=== PATIENT | female | born 1945 | race American Indian/Alaskan Native ===

== ENCOUNTER 2017-04-09 16:32 | Inpatient (IN) | payer MEDICARE ==
[2017-04-09 17:01] LABS: Hematocrit 43.3 % (30.3-42.9); Mean Corpuscular HGB Conc 32 % (30-34); Mean Corpuscular Hemoglobin 31 pg (28-32); Mean Corpuscular Volume 95 fl (79-97); Platelet Count 188 K/mm3 (140-440); Red Blood Count 4.58 M/mm3 (3.65-5.03); Red Cell Distribution Width 13.6 % (13.2-15.2); White Blood Count 10.8 K/mm3 (4.5-11.0)
[2017-04-09 17:20] LABS: Anion Gap 19 mmol/L; BUN/Creatinine Ratio 30; Blood Urea Nitrogen 24 mg/dL (7-17); Calcium 9.1 mg/dL (8.4-10.2); Carbon Dioxide 26 mmol/L (22-30); Chloride 99.7 mmol/L (98-107); Glucose 102 mg/dL (65-100); Potassium 4.3 mmol/L (3.6-5.0); Sodium 140 mmol/L (137-145)
[2017-04-09 17:53] LABS: Blastocytes % (Manual) 0 %
[2017-04-09 17:54] LABS: Diff Status Complete; Platelet Estimate Consistent w Auto; Tear Drop Cells Few
--- NOTE | 2017-04-09 23:12 | Emergency Department Report ---
ED Chest Pain HPI - General Chief Complaint: Chest Pain Stated Complaint: CHEST PAIN AND SHORTNESS BREATH Time Seen by Provider: 04/09/17 22:01 Source: patient Mode of arrival: Ambulatory Limitations: No Limitations - History of Present Illness Initial Comments: 71-year-old female here with complaint of chest pain. Patient states that she felt slightly lightheaded earlier today and some chest pain. Denies shortness of breath nausea vomiting. Patient recently had a stress test approximately 3 months ago at [facility] that she says is completely normal. She states it was a nuclear stress test. -: days(s) (1) Onset: during rest Pain Location: substernal Severity scale (0 -10): 5 Quality: tightness Improves With: nothing Worsens With: nothing Other Symptoms: cough, fever - Related Data Home Medications Medication Instructions Recorded Confirmed Last Taken Hydrochlorothiazide [HCTZ] 20 mg PO QDAY 12/25/15 12/25/15 Unknown Potassium Chloride [K-Dur] 20 meq PO QDAY 12/25/15 12/25/15 Unknown Allergies Allergy/AdvReac Type Severity Reaction Status Date / Time erythromycin base Allergy Shortness Verified 12/25/15 09:18 of Breath influenza virus vaccine qs Allergy Shortness Verified 12/25/15 09:18 2013- of Breath [From Fluarix Quad 4393-2151 (PF)] morphine Allergy Shortness Verified 12/25/15 09:18 of Breath Penicillins Allergy Itching Verified 12/25/15 09:18 tramadol Allergy Itching Verified 12/25/15 09:18 Heart Score - HEART Score History: Moderately suspicious EKG: Normal Age: > 65 Risk factors: 1-2 risk factors Troponin: < normal limit HEART Score: 4 ED Review of Systems ROS: Stated complaint: CHEST PAIN AND SHORTNESS BREATH Other details as noted in HPI Comment: All other systems reviewed and negative Constitutional: denies: chills, fever Eyes: denies: eye pain, eye discharge, vision change ENT: denies: ear pain, throat pain Respiratory: denies: cough, shortness of breath, wheezing Cardiovascular: denies: chest pain, palpitations Endocrine: no symptoms reported Gastrointestinal: denies: abdominal pain, nausea, diarrhea Genitourinary: denies: urgency, dysuria, discharge Musculoskeletal: denies: back pain, joint swelling, arthralgia Skin: denies: rash, lesions Neurological: denies: headache, weakness, paresthesias Psychiatric: denies: anxiety, depression Hematological/Lymphatic: denies: easy bleeding, easy bruising ED Past Medical Hx - Past Medical History Previous Medical History?: Yes Hx Hypertension: Yes - Surgical History Past Surgical History?: Yes Additional Surgical History: hysto - Family History Family history: no significant - Social History Smoking Status: Never Smoker Substance Use Type: None - Medications Home Medications: Home Medications Medication Instructions Recorded Confirmed Last Taken Type Hydrochlorothiazide [HCTZ] 20 mg PO QDAY 12/24/12/25/15 Unknown History Potassium Chloride [K-Dur] 20 meq PO QDAY 12/25/15 12/25/15 Unknown History ED Physical Exam - General Limitations: No Limitations General appearance: alert, in no apparent distress - Head Head exam: Present: atraumatic, normocephalic - Eye Eye exam: Present: normal appearance. Absent: scleral icterus, conjunctival injection - ENT ENT exam: Present: mucous membranes moist - Neck Neck exam: Absent: lymphadenopathy, thyromegaly - Respiratory Respiratory exam: Present: normal lung sounds bilaterally. Absent: respiratory distress, wheezes - Cardiovascular Cardiovascular Exam: Present: regular rate, normal rhythm, normal heart sounds. Absent: systolic murmur, diastolic murmur, rubs, gallop - GI/Abdominal GI/Abdominal exam: Present: soft, normal bowel sounds - Extremities Exam Extremities exam: Present: normal inspection - Back Exam Back exam: Present: normal inspection - Neurological Exam Neurological exam: Present: alert, oriented X3 - Psychiatric Psychiatric exam: Present: normal affect, normal mood - Skin Skin exam: Present: warm, dry, intact, normal color. Absent: rash ED Course Vital Signs 04/09/17 04/09/17 16:38 22:00 Temperature 98.4 F 98.3 F Pulse Rate 96 H 79 Respiratory 16 16 Rate Blood Pressure 130/81 Blood Pressure 130/85 [Left] O2 Sat by Pulse 97 100 Oximetry ED Medical Decision Making - Lab Data Result diagrams: 04/09/17 16:48 04/09/17 16:48 Laboratory Results - last 24 hr 04/09/17 04/09/17 04/09/17 16:48 16:48 19:28 WBC 10.8 RBC 4.58 Hgb 14.0 Hct 43.3 H MCV 95 MCH 31 MCHC 32 RDW 13.6 Plt Count 188 Add Manual Diff Complete Total Counted 100 Seg Neuts % (Manual) 76.0 H Band Neutrophils % 3.0 Lymphocytes % (Manual) 13.0 L Reactive Lymphs % (Man) 0 Monocytes % (Manual) 6.0 Eosinophils % (Manual) 1.0 Basophils % (Manual) 1.0 Metamyelocytes % 0 Myelocytes % 0 Promyelocytes % 0 Blast Cells % 0 Nucleated RBC % Not Reportable Seg Neutrophils # Man 8.2 H Band Neutrophils # 0.3 Lymphocytes # (Manual) 1.4 Abs React Lymphs (Man) 0.0 Monocytes # (Manual) 0.6 Eosinophils # (Manual) 0.1 Basophils # (Manual) 0.1 Metamyelocytes # 0.0 Myelocytes # 0.0 Promyelocytes # 0.0 Blast Cells # 0.0 WBC Morphology Not Reportable Hypersegmented Neuts Not Reportable Hyposegmented Neuts Not Reportable Hypogranular Neuts Not Reportable Smudge Cells Not Reportable Toxic Granulation Not Reportable Toxic Vacuolation Not Reportable Dohle Bodies Not Reportable Pelger-Huet Anomaly Not Reportable Yamilet Rods Not Reportable Platelet Estimate Consistent w auto Clumped Platelets Not Reportable Plt Clumps, EDTA Not Reportable Large Platelets Not Reportable Giant Platelets Not Reportable Platelet Satelliting Not Reportable Plt Morphology Comment Not Reportable RBC Morphology Not Reportable Dimorphic RBCs Not Reportable Polychromasia Not Reportable Hypochromasia Not Reportable Poikilocytosis Not Reportable Anisocytosis Not Reportable Microcytosis Not Reportable Macrocytosis Not Reportable Spherocytes Not Reportable Pappenheimer Bodies Not Reportable Sickle Cells Not Reportable Target Cells Not Reportable Tear Drop Cells Few Ovalocytes Not Reportable Helmet Cells Not Reportable Mart-[place] Bodies Not Reportable Eleva Rings Not Reportable Prasanth Cells Not Reportable Bite Cells Not Reportable Crenated Cell Not Reportable Elliptocytes Not Reportable Acanthocytes (Spur) Not Reportable Rouleaux Not Reportable Hemoglobin C Crystals Not Reportable Schistocytes Not Reportable Malaria parasites Not Reportable Sid Bodies Not Reportable Hem Pathologist Commnt No Sodium 140 Potassium 4.3 Chloride 99.7 Carbon Dioxide 26 Anion Gap 19 BUN 24 H Creatinine 0.8 Estimated GFR > 60 BUN/Creatinine Ratio 30 Glucose 102 H Calcium 9.1 Troponin T < 0.010 < 0.010 - EKG Data -: EKG Interpreted by Me - EKG Data 04/09/17 23:17 Sinus 91 normal axis normal intervals and no ST-T wave changes - Medical Decision Making 71-year-old female here with chest pain that is now resolved. Patient had a recent stress test as an outpatient. And feel that this is ACS. Plan a chest x -ray and labs EKG and the rule out with 2 sets of troponins. Patient had 2 episodes of lightheadedness in the emergency department with continued chest pain. Decided to admit the patient for observation overnight. I do not miss really feel she needs another stress test at this point. [place] Critical care attestation.: If time is entered above; I have spent that time in minutes in the direct care of this critically ill patient, excluding procedure time. ED Disposition Clinical Impression: Chest pain, Pre-syncope Disposition: 09 OP ADMIT IP TO THIS HOSP Is pt being admited?: Yes Condition: Stable Instructions: Chest Pain (ED) Referrals: PRIMARY CARE, [Primary Care Provider] - 3-5 Days
[2017-04-10] MEDS ORDERED: ZOFRAN IV PRN (06:53)
[2017-04-10] MEDS ORDERED: NITRO-BID 2% TP SCH (07:00)
--- NOTE | 2017-04-10 07:22 | XRay Report ---
AP CHEST: HISTORY: chest pain AP view of the chest demonstrates a normal mediastinal and cardiac contour with clear lungs and normal bony and soft tissue structures. IMPRESSION: Unremarkable AP chest.
[2017-04-10] MEDS ORDERED: K-DUR PO SCH (10:00)
[2017-04-10] MEDS ORDERED: HCTZ PO SCH (10:00)
--- NOTE | 2017-04-10 12:12 | History and Physical Report ---
CHIEF COMPLAINT: Chest pain. HISTORY OF PRESENT ILLNESS: The patient is a 71-year-old female presenting with precordial chest pain, which she described as squeezing in nature that started yesterday. There was history of shortness of breath and dizziness, but there was no history of nausea or vomiting. There was also no history of diaphoresis and the patient denied also history of fever and cough, and presented to the Emergency Room. PAST MEDICAL HISTORY: Pertinent for hypertension. PAST SURGICAL HISTORY: Pertinent for hysterectomy. FAMILY HISTORY: Pertinent for carotid stenosis in the father; otherwise, there is no pertinent family history in the mother. SOCIAL HISTORY: The patient lives with family. Does not smoke, does not drink alcohol and does not use illicit drugs. MEDICATIONS: The patient is on hydrochlorothiazide 20 mg by mouth daily, potassium chloride 20 mEq by mouth daily. ALLERGIES: The patient is allergic to ERYTHROMYCIN, INFLUENZA VACCINE, and MORPHINE. REVIEW OF SYSTEMS: CONSTITUTIONAL: There is no fever, no chills, and no diaphoresis. HEENT: There is no headache or sore throat. CARDIOVASCULAR: Chest pain present. No orthopnea. RESPIRATORY: Shortness of breath present. No cough. GASTROINTESTINAL: There is no nausea, no vomiting, no abdominal pain, diarrhea or constipation. NEUROLOGICAL: There is no numbness, there is dizziness, and no altered mental status. MUSCULOSKELETAL: There is no joint pain or swelling. DERMATOLOGICAL: There is no skin rash or itching. GENITOURINARY: There is no dysuria, hematuria, or flank pain. Rest of system review is normal. PHYSICAL EXAMINATION: GENERAL: At the time of exam, the patient was found to be alert, oriented x 3, and not in acute distress. VITAL SIGNS: Shows temperature of 98.4 degrees Fahrenheit, pulse of 96, respirations 16, blood pressure 130/81 and O2 sat of 97% on room air. HEENT: Pupils to be equal, round, and reactive to light and accommodation. Extraocular muscles are intact. NECK: Supple with no JVD or carotid bruit. CARDIOVASCULAR: Showed normal first and second heart sounds with no gallops or murmurs. RESPIRATORY: Showed good air entry on both sides of the lung with no abnormal breath sounds. GASTROINTESTINAL SYSTEM: Show abdomen to be full, soft, and nontender with no organomegaly or rigidity. NEUROLOGICAL: Shows no focal deficit. MUSCULOSKELETAL: Show no joint swelling or tenderness. DERMATOLOGICAL: Show no skin rash. GENITOURINARY: Showing no costovertebral angle tenderness. PERTINENT LABORATORY AND IMAGING STUDIES: The patient had chest x-ray done that shows no acute cardiopulmonary lesions. The patient's lab shows CBC with normal white count, normal hemoglobin and slightly elevated hematocrit of 43.3% with CBC differential showing elevated neutrophil count of 76%. The patient's chemistry was unremarkable and cardiac enzymes showed 2 normal troponin levels. DIAGNOSIS: Chest pain. PLAN: The patient will be admitted to medical floor on telemetry and we will have cardiac enzymes checked q. 6 hours x 2 more levels. The patient will be on n.p.o. for Lexiscan stress test this morning and will remain on oxygen by nasal cannula at 2 liters per minute. The patient will be on nitro paste half inch to anterior chest wall q. 6 hours or q.i.d. and will be on Tylenol 650 mg by mouth every 4 hours as needed for fever and headache and will be on aspirin 325 mg by mouth daily. The patient will also be on her home medications after reconciliation and will be on heparin 5000 units subq q. 12 hours for deep venous thrombosis prophylaxis. Further management of the patient's condition will be dependent on the result of the stress test, which will be read by the lace sewer estimation manager. JOB# [id number] OCN/JENNYFER
--- NOTE | 2017-04-10 12:36 | Progress Note ---
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 Faith Sheffield and Research And Development Chemist Dr. Clayton Robles, both in [facility] (lives in [place] now) who presented with heart racing leading to exhaustion, shortness of breath followed by substernal chest pains radiating to the jaw. Patient had a stress test [facility] in December which was negative per Dr. Hay so stress test was cancelled on this admission. Chest x-ray read as negative, troponin negative. Patient saw the [place] ma[place] (Dr. Clayton Robles) 2 years ago due to abnormal EKG stress test at that time. Patient also gives a history of vomiting without nausea yesterday. -Palpitation: Admit to telemetry for 24-hour telemetry monitoring, consult cardiology for possible outpatient monitoring, check TSH -CP: consult Cardiology, -HTN: continue hctz History Interval history: Patient was seen and examined. Follow-up on current diagnosis/cp. Overnight uneventful. Patient denies any chest pain, shortness breath, nausea/vomiting or severe headaches. Imaging, nursing note, chart, labs and old chart reviewed. Discussed with patient. Hospitalist Physical - Physical exam Narrative exam: GEN: WDWN, NAD, AWAKE, ALERT, ORIENTATED 3 HEENT: NCAT, EOMI, PERRL, OP Clear NECK: supple, no adenopathy, no thyromegaly, no JVD CVS/HEART: RRR, NORMAL S1S2, NO JVD, pulses present bilaterally CHEST/LUNGS: CTA B, Symmetrical chest expansion, good air entry bilaterally GI/Abdomen: soft, NTND, good bowel sounds, no guarding or rebound /Bladder: no suprapubic tenderness, no CVA or paraspinal tenderness EXT/Skin: no c/c/e, no significant edema or obvious rash MSK: FROM x 4 Neuro: CN 2-12 grossly intact, no new focal deficits Psych: calm - Constitutional Vitals: Temp Pulse Resp BP Pulse Ox 98.3 F 73 18 120/69 97 04/09/17 22:00 04/10/17 09:30 04/10/17 09:30 04/10/17 09:30 04/10/17 09:30 Results - Labs CBC & Chem 7: 04/09/17 16:48 04/09/17 16:48 Labs: Laboratory Last Values WBC 10.8 K/mm3 (4.5-11.0) 04/09/17 16:48 RBC 4.58 M/mm3 (3.65-5.03) 04/09/17 16:48 Hgb 14.0 gm/dl (10.1-14.3) 04/09/17 16:48 Hct 43.3 % (30.3-42.9) H 04/09/17 16:48 MCV 95 fl (79-97) 04/09/17 16:48 MCH 31 pg (28-32) 04/09/17 16:48 MCHC 32 % (30-34) 04/09/17 16:48 RDW 13.6 % (13.2-15.2) 04/09/17 16:48 Plt Count 188 K/mm3 (140-440) 04/09/17 16:48 Add Manual Diff Complete 04/09/17 16:48 Total Counted 100 04/09/17 16:48 Seg Neuts % (Manual) 76.0 % (40.0-70.0) H 04/09/17 16:48 Band Neutrophils % 3.0 % 04/09/17 16:48 Lymphocytes % (Manual) 13.0 % (13.4-35.0) L 04/09/17 16:48 Reactive Lymphs % (Man) 0 % 04/09/17 16:48 Monocytes % (Manual) 6.0 % (0.0-7.3) 04/09/17 16:48 Eosinophils % (Manual) 1.0 % (0.0-4.3) 04/09/17 16:48 Basophils % (Manual) 1.0 % (0.0-1.8) 04/09/17 16:48 Metamyelocytes % 0 % 04/09/17 16:48 Myelocytes % 0 % 04/09/17 16:48 Promyelocytes % 0 % 04/09/17 16:48 Blast Cells % 0 % 04/09/17 16:48 Nucleated RBC % Not Reportable 04/09/17 16:48 Seg Neutrophils # Man 8.2 K/mm3 (1.8-7.7) H 04/09/17 16:48 Band Neutrophils # 0.3 K/mm3 04/09/17 16:48 Lymphocytes # (Manual) 1.4 K/mm3 (1.2-5.4) 04/09/17 16:48 Abs React Lymphs (Man) 0.0 K/mm3 04/09/17 16:48 Monocytes # (Manual) 0.6 K/mm3 (0.0-0.8) 04/09/17 16:48 Eosinophils # (Manual) 0.1 K/mm3 (0.0-0.4) 04/09/17 16:48 Basophils # (Manual) 0.1 K/mm3 (0.0-0.1) 04/09/17 16:48 Metamyelocytes # 0.0 K/mm3 04/09/17 16:48 Myelocytes # 0.0 K/mm3 04/09/17 16:48 Promyelocytes # 0.0 K/mm3 04/09/17 16:48 Blast Cells # 0.0 K/mm3 04/09/17 16:48 WBC Morphology Not Reportable 04/09/17 16:48 Hypersegmented Neuts Not Reportable 04/09/17 16:48 Hyposegmented Neuts Not Reportable 04/09/17 16:48 Hypogranular Neuts Not Reportable 04/09/17 16:48 Smudge Cells Not Reportable 04/09/17 16:48 Toxic Granulation Not Reportable 04/09/17 16:48 Toxic Vacuolation Not Reportable 04/09/17 16:48 Dohle Bodies Not Reportable 04/09/17 16:48 Pelger-Huet Anomaly Not Reportable 04/09/17 16:48 Yamilet Rods Not Reportable 04/09/17 16:48 Platelet Estimate Consistent w auto 04/09/17 16:48 Clumped Platelets Not Reportable 04/09/17 16:48 Plt Clumps, EDTA Not Reportable 04/09/17 16:48 Large Platelets Not Reportable 04/09/17 16:48 Giant Platelets Not Reportable 04/09/17 16:48 Platelet Satelliting Not Reportable 04/09/17 16:48 Plt Morphology Comment Not Reportable 04/09/17 16:48 RBC Morphology Not Reportable 04/09/17 16:48 Dimorphic RBCs Not Reportable 04/09/17 16:48 Polychromasia Not Reportable 04/09/17 16:48 Hypochromasia Not Reportable 04/09/17 16:48 Poikilocytosis Not Reportable 04/09/17 16:48 Anisocytosis Not Reportable 04/09/17 16:48 Microcytosis Not Reportable 04/09/17 16:48 Macrocytosis Not Reportable 04/09/17 16:48 Spherocytes Not Reportable 04/09/17 16:48 Pappenheimer Bodies Not Reportable 04/09/17 16:48 Sickle Cells Not Reportable 04/09/17 16:48 Target Cells Not Reportable 04/09/17 16:48 Tear Drop Cells Few 04/09/17 16:48 Ovalocytes Not Reportable 04/09/17 16:48 Helmet Cells Not Reportable 04/09/17 16:48 Mart-[place] Bodies Not Reportable 04/09/17 16:48 Loving Rings Not Reportable 04/09/17 16:48 Prasanth Cells Not Reportable 04/09/17 16:48 Bite Cells Not Reportable 04/09/17 16:48 Crenated Cell Not Reportable 04/09/17 16:48 Elliptocytes Not Reportable 04/09/17 16:48 Acanthocytes (Spur) Not Reportable 04/09/17 16:48 Rouleaux Not Reportable 04/09/17 16:48 Hemoglobin C Crystals Not Reportable 04/09/17 16:48 Schistocytes Not Reportable 04/09/17 16:48 Malaria parasites Not Reportable 04/09/17 16:48 Sid Bodies Not Reportable 04/09/17 16:48 Hem Pathologist Commnt No 04/09/17 16:48 Sodium 140 mmol/L (137-145) 04/09/17 16:48 Potassium 4.3 mmol/L (3.6-5.0) 04/09/17 16:48 Chloride 99.7 mmol/L (98-107) 04/09/17 16:48 Carbon Dioxide 26 mmol/L (22-30) 04/09/17 16:48 Anion Gap 19 mmol/L 04/09/17 16:48 BUN 24 mg/dL (7-17) H 04/09/17 16:48 Creatinine 0.8 mg/dL (0.7-1.2) 04/09/17 16:48 Estimated GFR > 60 ml/min 04/09/17 16:48 BUN/Creatinine Ratio 30 % 04/09/17 16:48 Glucose 102 mg/dL (65-100) H 04/09/17 16:48 Calcium 9.1 mg/dL (8.4-10.2) 04/09/17 16:48 Troponin T < 0.010 ng/mL (0.00-0.029) 04/09/17 22:26
[2017-04-10] MEDS: HEPARIN SUB-Q SCH ×2 (14:21→22:07)
--- NOTE | 2017-04-10 14:22 | Consultation ---
History of Present Illness Consult date: 04/10/17 Consult reason: other (Palpitations) History of present illness: This is a 71yr old woman who is admitted with chest pain. Patient reports vomiting followed by shortness of breath, dizziness, palpitations and chest pain prior to her arrival to the ED. Her ECG shows a sinus rhythm, no acute ischemic changes. Patient gives a history of hypertension. Her latest cardiac workup was negative stress test at [facility] a few months ago. Cardiology consultation was requested for evaluation of palpitations. Medications and Allergies Allergies Allergy/AdvReac Type Severity Reaction Status Date / Time erythromycin base Allergy Shortness Verified 04/10/17 07:08 of Breath influenza virus vaccine qs Allergy Shortness Verified 04/10/17 07:08 2013- of Breath [From Fluarix Quad 7441-4830 (PF)] morphine Allergy Shortness Verified 04/10/17 07:08 of Breath Penicillins Allergy Itching Verified 04/10/17 07:08 tramadol Allergy Itching Verified 04/10/17 07:08 Home Medications Medication Instructions Recorded Confirmed Last Taken Type Hydrochlorothiazide [HCTZ] 25 mg PO QDAY 12/25/15 04/10/17 1 Day Ago History Potassium Chloride [K-Dur] 20 meq PO QDAY 12/25/15 04/10/17 1 Day Ago History Active Meds: Active Medications Acetaminophen (Tylenol) 650 mg PO Q4H PRN PRN Reason: Pain, Mild (1-3) Aspirin (Aspirin) 325 mg PO QDAY [facility] Heparin Sodium (Porcine) (Heparin) 5,000 unit SUB-Q Q12HR ISMAEL Hydrochlorothiazide (Hctz) 20 mg PO QDAY [facility] Ondansetron HCl (Zofran) 4 mg IV Q8H PRN PRN Reason: Nausea And Vomiting Potassium Chloride (K-Dur) 20 meq PO QDAY [facility] Physical Examination Vital Signs Temp Pulse Resp BP Pulse Ox 98.4 F 96 H 16 130/81 97 04/09/17 16:38 04/09/17 16:38 04/09/17 16:38 04/09/17 16:38 04/09/17 16:38 General appearance: no acute distress HEENT: Positive: PERRL Neck: Positive: trachea midline Cardiac: Positive: Reg Rate and Rhythm Lungs: Positive: Decreased Breath Sounds Neuro: Positive: Grossly Intact Results 04/09/17 16:48 04/09/17 16:48 Assessment and Plan Chest pain, atypical negative MPI 12/2016 at [facility] [place] Hypertension Recommend: Remote telemetry monitoring. Check a TSH and serum mag.
[2017-04-10 14:23] LABS: Creatine Kinase MB 1.6 ng/mL (0.0-4.0)
[2017-04-10 14:28] LABS: Creatine Kinase 58 units/L (30-135)
[2017-04-10] MEDS: ASPIRIN PO SCH (17:55)
[2017-04-10 19:30] LABS: Creatine Kinase MB 1.6 ng/mL (0.0-4.0)
[2017-04-10 19:31] LABS: Creatine Kinase 57 units/L (30-135)
[2017-04-10] MEDS ORDERED: NACL 0.9% 500 ML 500 ML IV SCH (21:00)
[2017-04-10] MEDS: K-DUR PO SCH (22:08)
[2017-04-10] MEDS ORDERED: NACL 0.9% 1000 ML 500 ML IV SCH (23:00)
[2017-04-11 05:51] LABS: Partial Thromboplastin Time 26.2 Sec. (24.2-36.6)
[2017-04-11] MEDS ORDERED: CALAN ONE (10:42)
[2017-04-11] MEDS ORDERED: HEPARIN/NS 5000 UNIT/500ML(CATH LAB) 1,000 ML IR ONE (10:42)
[2017-04-11] MEDS ORDERED: HEPARIN 10,000 UNITS/10 ML ONE (10:42)
[2017-04-11] MEDS ORDERED: VERSED ONE (10:43)
[2017-04-11] MEDS ORDERED: NITROGLYCERIN SYRINGE 3 ML ONE (10:43)
[2017-04-11] MEDS ORDERED: NACL 0.9% 500 ML 500 ML ONE (10:46)
[2017-04-11] MEDS: SUBLIMAZE ONE ×2 (10:58→11:10)
[2017-04-11] MEDS: XYLOCAINE 2% INFILTRATI ONE ×2 (10:59→11:10)
[2017-04-11] MEDS: HEPARIN SUB-Q SCH ×2 (11:29→21:31)
--- NOTE | 2017-04-11 11:34 | Event Note ---
Date: 04/11/17 Cardiac cath completed, no complications. Findings: Normal coronaries, EF 60%. OK for cardiac discharge, post cath follow up 7 days.
[2017-04-11] MEDS ORDERED: Fluarix Quad 2017-2018(36 MOS+) IM ONE (12:00)
[2017-04-11] MEDS ORDERED: NACL 0.9% 1000 ML 1,000 ML IV SCH (12:00)
[2017-04-11] MEDS: ASPIRIN PO SCH (12:35)
--- NOTE | 2017-04-11 13:00 | Cardiac Catherization Report ---
CARDIAC CATHETERIZATION REASON FOR PROCEDURE: The patient is a 71-year-old woman, who presented with progressive, exertional fatigue and chest pain, prompting a recommendation for a cardiac catheterization. PROCEDURE: The patient was prepped and draped in a sterile fashion after informed consent. On initial attempt at cannulation of the right radial artery was unsuccessful. We turned our attention to the right femoral artery. Right femoral artery was entered using the Seldinger technique followed by placement of a 6-Mozambican sheath. Selective left and right coronary angiography was performed using Roberto catheters. A pigtail catheter was used for left ventricular angiography. The catheters were removed, sheath removed, and hemostasis achieved using an Angio-Seal device. The patient was returned to the postprocedure unit in stable condition. There were no complications. FINDINGS: HEMODYNAMICS: Left ventricular end-diastolic pressure was 18, following coronary angiography. Ascending aortic pressure was 133/78. There was no significant pressure gradient on pullback across the aortic valve. CORONARY ANGIOGRAPHY: The left main coronary artery was angiographically normal. The left anterior descending artery and its diagonal branches were angiographically normal. The circumflex artery and its obtuse marginal branches were angiographically normal. The right coronary artery was dominant and similarly angiographically normal. There was normal left ventricular systolic function, ejection fraction 60%. CONCLUSION: 1. Angiographically normal coronary arteries. 2. Normal left ventricular systolic function, ejection fraction 60%. RECOMMENDATION: Risk factor modification and medical therapy. JOB# [id number] DOMINGA/JENNYFER
--- NOTE | 2017-04-11 16:07 | Discharge Summary ---
Providers - Providers Date of Admission: 04/10/17 08:33 Date of discharge: 04/12/17 Attending physician: SRIDEVI HAINES 04/10/17 12:39 Consult to Physician [CONS] Routine Consulting Provider: CONCHIS COREA Reason For Exam: Palpitations,evaluate for arrhy Place consult to:: Bharti STEVENS Notified:: GARY Time called:: 12:46 04/11/17 11:34 Consult to Cardiac Rehabilitation [CONS] Routine Reason For Exam: Cardiac Rehab Evaluation Primary care physician: HISTORIC PRESERVATIONIST Hospitalization Condition: Stable Hospital course: Patient is 71-year-old woman who is a [employer] with a history of hypertension on hctz 25meg and kcl 20meq, followed by Dr. Faith Sheffield and Fiber Optic [employer] Worker Dr. Clayton Robles, both in [facility] (lives in [place] now) who presented with heart racing leading to exhaustion, shortness of breath followed by substernal chest pains radiating to the jaw. Patient had a stress test at [facility] in December which was negative per Dr. Corea so stress test was cancelled on this admission. Chest x-ray read as negative, troponin negative. Patient saw the meal miller (Dr. Clayton Robles) 2 years ago due to abnormal EKG stress test at that time. Patient also gives a history of vomiting without nausea yesterday. -Palpitation: Admit to telemetry for 24-hour telemetry monitoring, consult cardiology for possible outpatient monitoring, check TSH -CP, atypical, possibly costochondritits: consult Cardiology, -HTN: continue hctz normal cardiac cath. ok to discharge, d/w Dr. Corea, Fiber Optic Assembly Worker Disposition: DC-01 TO HOME OR SELFCARE Time spent for discharge: 35 minutes Core Measure Documentation - Palliative Care Palliative Care/ Comfort Measures: Not Applicable - Core Measures Any of the following diagnoses?: none - VTE Discharge Requirements Deep Vein Thrombosis/Pulmonary Embolism Present on Admission: No Has pt received <5 days of overlap therapy or INR<2.0: No Anticoagulant overlap therapy prescribed at discharge: No Contraindication No Overlap Therapy order at DC: Not Indicated Exam - Physical Exam Narrative exam: GEN: WDWN, NAD, AWAKE, ALERT, ORIENTATED 3 HEENT: NCAT, EOMI, PERRL, OP Clear NECK: supple, no adenopathy, no thyromegaly, no JVD CVS/HEART: RRR, NORMAL S1S2, NO JVD, pulses present bilaterally CHEST/LUNGS: CTA B, Symmetrical chest expansion, good air entry bilaterally GI/Abdomen: soft, NTND, good bowel sounds, no guarding or rebound /Bladder: no suprapubic tenderness, no CVA or paraspinal tenderness EXT/Skin: no c/c/e, no significant edema or obvious rash MSK: FROM x 4 Neuro: CN 2-12 grossly intact, no new focal deficits Psych: calm - Constitutional Vitals: Temp Pulse Resp BP Pulse Ox 97.4 F L 101 H 18 113/76 97 04/11/17 12:48 04/11/17 12:48 04/11/17 12:48 04/11/17 12:48 04/11/17 12:48 Plan Activity: other (no strenous activity until cleared by pcp) Diet: low salt Additional Instructions: Follow with her meal miller outpatient Follow up with: PRIMARY CAREMD [Primary Care Provider] - 3-5 Days Forms: [facility] PCI D/C Instructions
[2017-04-11] MEDS: TYLENOL PO PRN ×2 (18:15→21:30)
[2017-04-11] MEDS ORDERED: HCTZ PO SCH (20:00)
[2017-04-11] MEDS: K-DUR PO SCH (21:30)
[2017-04-12] MEDS: TYLENOL PO PRN (05:46)
[2017-04-12 05:56] VITALS: BP 146/84
[2017-04-12] MEDS: ASPIRIN PO SCH (10:34)
[2017-04-12] MEDS: HEPARIN SUB-Q SCH (10:35)
--- NOTE | 2017-04-12 15:46 | Progress Note ---
Assessment and Plan Chest pain, atypical negative MPI 12/2016 at [facility] normal coronaries, EF 60% on LHC this admission Fatigue normal TSH Hypertension Stable cardiac odell. Conservative cardiac management. Subjective Date of service: 04/12/17 Interval history: Patient has no complaints. Dressing applied to cardiac cath site. Objective Vital Signs Temp Pulse Resp BP BP Pulse Ox 04/12/17 08:54 99 04/12/17 05:19 98.1 F 67 18 146/84 99 04/11/17 23:25 98.5 F 65 18 109/72 99 04/11/17 22:00 65 99 04/11/17 20:10 98.2 F 69 18 115/58 98 04/11/17 16:00 97.2 F L 73 18 109/70 98 - Physical Examination General: No Apparent Distress HEENT: Positive: PERRL Neck: Positive: trachea midline Cardiac: Positive: Reg Rate and Rhythm Lungs: Positive: Decreased Breath Sounds Neuro: Positive: Grossly Intact Incision: Cardiac Cath Site
== END 2017-04-12 14:57 | disposition home or self-care (01) | DRG 206 ==
LOC: ED 16:32 → 4A 04-10 08:33
PROVIDERS: ADMIT Internal Medicine; ATTEND Internal Medicine
PROC: 4A023N7 Measurement of Cardiac Sampling and Pressure, Left Heart, Percutaneous Approach (ICD-10-PCS; principal; 2017-04-11)
PROC: B2141ZZ Fluoroscopy of Right Heart using Low Osmolar Contrast (ICD-10-PCS; principal; 2017-04-11)
PROC: 3E0234Z Introduction of Serum, Toxoid and Vaccine into Muscle, Percutaneous Approach (ICD-10-PCS; 2017-04-11)
PROC: B2111ZZ Fluoroscopy of Multiple Coronary Arteries using Low Osmolar Contrast (ICD-10-PCS; 2017-04-11)
DX: M94.0 Chondrocostal junction syndrome [Tietze] (principal); I10 Essential (primary) hypertension; R00.2 Palpitations; Z88.0 Allergy status to penicillin; Z88.8 Allergy status to other drugs, medicaments and biological substances; Z23 Encounter for immunization
CPT/HCPCS: 36415; 71010; 80048; 82550; 82553; 82962; 83735; 84443; 84484; 85007; 85025; 85610; 85730; 93005; 93010; 93458; C1760; C1894; J1644; J2250; J3010; J7040; Q9967

== ENCOUNTER 2019-08-08 19:39 | Emergency (ER) | payer MEDICARE ==
[2019-08-08 20:20] LABS: Basophils % (Auto) 0.6 % (0.0-1.8); Eosinophils # (Auto) 0.1 K/mm3 (0.0-0.4); Eosinophils % (Auto) 0.7 % (0.0-4.3); Hematocrit 37.2 % (30.3-42.9); Hemoglobin 12.3 gm/dl (10.1-14.3); Lymphocytes # (Auto) 1.5 K/mm3 (1.2-5.4); Lymphocytes % (Auto) 19.1 % (13.4-35.0); Mean Corpuscular HGB Conc 33 % (30-34); Mean Corpuscular Volume 97 fl (79-97); Monocytes # (Auto) 0.6 K/mm3 (0.0-0.8); Platelet Count 151 K/mm3 (140-440); Red Blood Count 3.82 M/mm3 (3.65-5.03); Red Cell Distribution Width 13.4 % (13.2-15.2)
--- NOTE | 2019-08-08 20:29 | Emergency Department Report ---
ED Dizziness HPI - General Chief Complaint: Dizziness Stated Complaint: NAUSEA/DIZZINESS Time Seen by Provider: 08/08/19 20:27 Source: patient, EMS Mode of arrival: Stretcher Limitations: No Limitations - History of Present Illness Initial Comments: Patient is a 74-year-old female that presents from urgent with complaints of dizziness and nausea. Patient states her symptoms started at 3 PM today. Patient denies chest pain/shortness of breath. Patient states her dizziness is better with rest and worse with exertion. Patient states she is compliant with her medications. Patient states she has a history of hypertension and diabetes. Patient states her diabetes is diet control. Patient denies a cardiac history. Patient denies [place]. Patient denies stroke. Patient denies weakness in her limbs. Patient denies slurred speech. MD Complaint: dizziness, lightheadedness -: Sudden Timing: sudden onset Description: lightheadedness History of Same: No History of Trauma: No Severity: severe Improves With: rest Worsens With: movement, position, exertion - Related Data Home Medications Medication Instructions Recorded Confirmed Last Taken hydroCHLOROthiazide [HCTZ] 25 mg PO QDAY 12/25/15 04/10/17 1 Day Ago ~04/09/17 Previous Rx's Medication Instructions Recorded Last Taken Type Potassium Chloride 20 meq PO DAILY 30 Days #30 liquid 08/08/19 Unknown Rx Allergies Allergy/AdvReac Type Severity Reaction Status Date / Time erythromycin base Allergy Shortness Verified 04/10/17 07:08 of Breath influenza virus vaccine qs Allergy Shortness Verified 04/10/17 07:08 2013- of Breath [From Fluarix Quad [id number] (PF)] morphine Allergy Shortness Verified 04/10/17 07:08 of Breath Penicillins Allergy Itching Verified 04/10/17 07:08 tramadol Allergy Itching Verified 04/10/17 07:08 ED Review of Systems ROS: Stated complaint: NAUSEA/DIZZINESS Other details as noted in HPI Constitutional: denies: chills, fever Eyes: denies: eye pain, eye discharge, vision change ENT: denies: ear pain, throat pain Respiratory: denies: cough, shortness of breath, wheezing Cardiovascular: denies: chest pain, palpitations Endocrine: no symptoms reported Gastrointestinal: nausea. denies: abdominal pain, diarrhea Genitourinary: denies: urgency, dysuria, discharge Musculoskeletal: denies: back pain, joint swelling, arthralgia Skin: denies: rash, lesions Neurological: denies: headache, weakness, paresthesias Psychiatric: denies: anxiety, depression Hematological/Lymphatic: denies: easy bleeding, easy bruising ED Past Medical Hx - Past Medical History Previous Medical History?: Yes Hx Hypertension: Yes Hx Diabetes: Yes (Type 2) - Surgical History Additional Surgical History: hysto - Social History Smoking Status: Never Smoker Substance Use Type: Alcohol - Medications Home Medications: Home Medications Medication Instructions Recorded Confirmed Last Taken Type hydroCHLOROthiazide [HCTZ] 25 mg PO QDAY 12/25/15 04/10/17 1 Day Ago History ~04/09/17 Potassium Chloride 20 meq PO DAILY 30 Days #30 liquid 08/08/19 Unknown Rx ED Physical Exam - General Limitations: No Limitations General appearance: alert, in no apparent distress - Head Head exam: Present: atraumatic, normocephalic - Eye Eye exam: Present: normal appearance - ENT ENT exam: Present: mucous membranes moist - Neck Neck exam: Present: normal inspection - Respiratory Respiratory exam: Present: normal lung sounds bilaterally. Absent: respiratory distress - Cardiovascular Cardiovascular Exam: Present: regular rate, normal rhythm. Absent: systolic murmur, diastolic murmur, rubs, gallop - GI/Abdominal GI/Abdominal exam: Present: soft, normal bowel sounds - Extremities Exam Extremities exam: Present: normal inspection - Back Exam Back exam: Present: normal inspection - Neurological Exam Neurological exam: Present: alert, oriented X3 - Psychiatric Psychiatric exam: Present: normal affect, normal mood - Skin Skin exam: Present: warm, dry, intact, normal color. Absent: rash ED Course Vital Signs 08/08/19 08/08/19 08/08/19 19:51 19:53 20:20 Temperature 98.6 F 98.6 F Pulse Rate 79 79 Respiratory 13 13 13 Rate Blood Pressure 148/95 Blood Pressure 148/95 [Right] O2 Sat by Pulse 97 97 97 Oximetry 08/08/19 08/08/19 08/08/19 21:17 22:14 23:33 Temperature Pulse Rate 76 71 65 Respiratory 15 14 18 Rate Blood Pressure Blood Pressure 146/82 126/75 144/75 [Right] O2 Sat by Pulse 98 98 98 Oximetry - Reevaluation(s) Reevaluation #1: Patient states she is feeling better. Patient states she's had a history of low potassium but patient is not taking her potassium with her hydrochlorothiazide as prescribed by her primary care. 08/08/19 22:05 Reevaluation #2: Patient states she is feeling better. Patient ambulatory around the ER. Patient denies dizziness. Patient denies weakness. Patient denies nausea. 08/08/19 22:48 Reevaluation #3: Patient states she is back to baseline. Patient states she is a symptomatically. I discussed all results with patient. I discussed importance of taking medications as directed to include her potassium and taking in adequate amounts of water. Patient stated discharge. Patient be discharged home. Patient given discharge instructions. Patient voiced understanding of discharge instructions. 08/08/19 23:16 ED Medical Decision Making - Lab Data Result diagrams: 08/08/19 20:09 08/08/19 20:09 - EKG Data -: EKG Interpreted by Me EKG shows normal: sinus rhythm, axis, intervals, QRS complexes, ST-T waves Rate: normal - Radiology Data Radiology results: report reviewed, image reviewed CT head/brain wo con INDICATION / CLINICAL INFORMATION: 74 years Female; neuro deficits <6hrs or sx present upon awakening. TECHNIQUE: Routine CT head without contrast. All CT scans at this location are performed using CT dose reduction for ALARA by means of automated exposure control. COMPARISON: None. FINDINGS: BRAIN / INTRACRANIAL CONTENTS: No acute hemorrhage, mass effect, midline shift, hydrocephalus, or acute, large territorial infarct. Mild, diffuse cerebral atrophy noted. Minimal, nonspecific white matter disease seen in the cerebral hemispheres. CRANIOCERVICAL JUNCTION: No significant abnormality. ORBITS: No significant abnormality of visualized orbits. SINUSES / MASTOIDS: No significant abnormality the visualized paranasal sinuses or mastoid air cells. ADDITIONAL FINDINGS: None. IMPRESSION: 1. No focal mass, hemorrhage, hydrocephalus, or acute, large territorial infarct. CHEST 1 VIEW, 08/08/2019 9:36 PM CLINICAL INFORMATION/INDICATION: Chest pain. Dizziness. COMPARISON: Chest radiograph, 04/09/2017 FINDINGS: SUPPORT DEVICES: None. HEART: The cardiac silhouette is normal in size. LUNGS/PLEURA: The lungs are clear of focal airspace disease or significant pleural effusion. ADDITIONAL FINDINGS: No additional acute findings. IMPRESSION: 1. No evidence of acute cardiopulmonary process. - Medical Decision Making Patient is a 74-year-old female that presents emergency room with complaints of dizziness, nausea. Patient responded well to treatment. Patient given fluids here and her symptoms resolved. Patient's lab work done in the ER and were significant for dehydration and hypokalemia. Patient given oral potassium in the ER. She has a history of low potassium and patient has been noncompliant with her oral potassium at home. Patient takes hydrochlorothiazide and is instructed by her doctor to take potassium supplements with her hydrochlorothiazide. Patient's EKG negative for acute findings. Patient's chest x-ray was negative for acute findings. Patient's head CT negative for acute findings. Patient discharged home. Patient is discharged. - Differential Diagnosis dizziness. deydration, electrolyte imbalance. Critical care attestation.: If time is entered above; I have spent that time in minutes in the direct care of this critically ill patient, excluding procedure time. ED Disposition Clinical Impression: Dizziness, Hypokalemia, Dehydration Disposition: DC-01 TO HOME OR SELFCARE Is pt being admited?: No Does the pt Need Aspirin: No Condition: Stable Instructions: Dehydration (ED), Hypokalemia (ED), Lightheadedness (ED), Dizziness (ED) Additional Instructions: Patient to follow up with primary care in 2-3 days. Patient to return to ER if condition worsens, changes or new symptoms arise. Patient to take potassium as directed. Patient to rest. Patient to increase water. Patient to continue all other medications. Prescriptions: Potassium Chloride 20 meq PO DAILY 30 Days #30 liquid Referrals: PRIMARY CARE, [Primary Care Provider] - 2-3 Days Time of Disposition: 23:19 - Assessment Assessment Interval: Baseline - Level of Consciousness 1a. Level of Consciousness: alert/keenly responsive - LOC Questions 1b. LOC Questions: answers both correctly - LOC Command 1c. LOC Commands: performs tasks correctly - Best Gaze 2. Best Gaze: normal - Visual 3. Visual: no visual loss - Facial Palsy 4. Facial Palsy: normal symmetrical movement - Motor Arm 5a. Motor Arm Left: no drift 5b. Motor Arm Right: no drift - Motor Leg 6a. Motor Leg Left: no drift 6b. Motor Leg Right: no drift - Limb Ataxia 7. Limb Ataxia: absent - Sensory 8. Sensory: normal - Best Language 9. Best Language: no aphasia - Dysarthria 10. Dysarthria: normal - Extinction and Inattention 11. Extinction/Inattention: no abnormality - Scoring Total Score: 0 Stroke Severity: No Stroke Symptoms
[2019-08-08 20:40] LABS: INR 1.09 (0.87-1.13); Partial Thromboplastin Time 27.2 Sec. (24.2-36.6)
[2019-08-08 20:41] LABS: BUN/Creatinine Ratio 15; Blood Urea Nitrogen 9 mg/dL (7-17); Calcium 7.8 mg/dL (8.4-10.2); Hemolysis Index 9
--- NOTE | 2019-08-08 21:28 | Cat Scan Report ---
CT head/brain wo con INDICATION / CLINICAL INFORMATION: 74 years Female; neuro deficits <6hrs or sx present upon awakening. TECHNIQUE: Routine CT head without contrast. All CT scans at this location are performed using CT dos e reduction for ALARA by means of automated exposure control. COMPARISON: None. FINDINGS: BRAIN / INTRACRANIAL CONTENTS: No acute hemorrhage, mass effect, midline shift, hydrocephalus, or acu te, large territorial infarct. Mild, diffuse cerebral atrophy noted. Minimal, nonspecific white matter disease seen in the cerebral hemispheres. CRANIOCERVICAL JUNCTION: No significant abnormality. ORBITS: No significant abnormality of visualized orbits. SINUSES / MASTOIDS: No significant abnormality the visualized paranasal sinuses or mastoid air cells. ADDITIONAL FINDINGS: None. IMPRESSION: 1. No focal mass, hemorrhage, hydrocephalus, or acute, large territorial infarct. Signer Name: Vaibhav Craig MD, III Signed: 08/08/2019 9:23 PM Workstation Name: [id number]
[2019-08-08] MEDS ORDERED: SODIUM CHLORIDE 0.9% 1000 ML 1,000 ML IV ONE (21:35)
--- NOTE | 2019-08-08 22:31 | XRay Report ---
CHEST 1 VIEW, 08/08/2019 9:36 PM CLINICAL INFORMATION/INDICATION: Chest pain. Dizziness. COMPARISON: Chest radiograph, 04/09/2017 FINDINGS: SUPPORT DEVICES: None. HEART: The cardiac silhouette is normal in size. LUNGS/PLEURA: The lungs are clear of focal airspace disease or significant pleural effusion. ADDITIONAL FINDINGS: No additional acute findings. IMPRESSION: 1. No evidence of acute cardiopulmonary process. Signer Name: Mel Dubon MD Signed: 08/08/2019 10:27 PM Workstation Name: [id number]
[2019-08-08] MEDS ORDERED: POTASSIUM CHLORIDE 20 MEQ PACKET FEEDTUBE ONE (22:42)
[2019-08-08 23:34] VITALS: BP 144/75
== END 2019-08-08 23:34 | disposition home or self-care (01) ==
LOC: ED 19:39
DX: R42 Dizziness and giddiness (principal); E87.6 Hypokalemia; E86.0 Dehydration; I10 Essential (primary) hypertension; E11.9 Type 2 diabetes mellitus without complications; Z79.899 Other long term (current) drug therapy; Z88.8 Allergy status to other drugs, medicaments and biological substances
CPT/HCPCS: 36415; 70450; 71045; 80048; 82962; 84484; 85025; 85610; 85670; 85730; 93005; 93010; 96360; 99285; J7030

== ENCOUNTER 2020-12-14 06:31 | Emergency (ER) | payer MEDICARE ==
[2020-12-14 07:21] LABS: Basophils # (Auto) 0.1 K/mm3 (0.0-0.1); Basophils % (Auto) 0.7 % (0.0-1.8); Eosinophils # (Auto) 0.1 K/mm3 (0.0-0.4); Eosinophils % (Auto) 1.3 % (0.0-4.3); Hematocrit 37.4 % (30.3-42.9); Lymphocytes # (Auto) 2.3 K/mm3 (1.2-5.4); Lymphocytes % (Auto) 24.2 % (13.4-35.0); Mean Corpuscular HGB Conc 35 % (30-34); Mean Corpuscular Volume 94 fl (79-97); Monocytes # (Auto) 0.8 K/mm3 (0.0-0.8); Monocytes % (Auto) 8.4 % (0.0-7.3); Platelet Count 154 K/mm3 (140-440); Red Blood Count 3.96 M/mm3 (3.65-5.03); Red Cell Distribution Width 13.3 % (13.2-15.2)
[2020-12-14 07:46] LABS: Alanine Aminotransferase 12 units/L (7-56); Albumin 3.6 g/dL (3.9-5); Blood Urea Nitrogen 15 mg/dL (7-17); Hemolysis Index 11
--- NOTE | 2020-12-14 07:51 | XRay Report ---
CHEST 2 VIEWS INDICATION: palpitations. Nausea and headache for 6 hours. COMPARISON: 08/08/2019 FINDINGS: Support devices: None. Heart: Within normal limits. The aorta is mildly ectatic but well defined. Lungs/pleura: No acute air space or interstitial disease. No pneumothorax. Additional findings: None. IMPRESSION: No acute findings. Signer Name: Damian Mora Jr, MD Signed: 12/14/2020 7:47 AM Workstation Name: [id number]
[2020-12-14 08:06] LABS: BUN/Creatinine Ratio 25
--- NOTE | 2020-12-14 14:39 | Emergency Department Report ---
ED General Adult HPI - General Chief complaint: Arrhythmia/Palpitations Stated complaint: Palpitations and headache Time Seen by Provider: 12/14/20 14:08 Source: patient, RN notes reviewed, old records reviewed Mode of arrival: Ambulatory Limitations: No Limitations - History of Present Illness Initial comments: The patient was evaluated in the emergency department for symptoms described in the history of present illness. He/she was evaluated in the context of the global COVID-19 pandemic, which necessitated consideration that the patient might be at risk for infection with the virus that causes COVID-19. Institutional protocols and algorithms that pertain to the evaluation of patients at risk for COVID-19 are in a state of rapid change based on information released by regulatory bodies including the CDC and federal and state organizations. These policies and algorithms were followed during the patient's care in the emergency department. Please note that these policies, procedures and recommendations changed on a rapid basis. Cardiology: [facility] cardiology The patient is a pleasant 75-year-old female. She had a cardiac catheterization in 2017 at this hospital, which was negative for significant disease. She currently has a history of A. fib, and is maintained on Xarelto. She presents to the ER today with a complaint of resolved palpitations, and resolved headache. The symptoms started last night. The headache was frontal, midline. The headache is not sudden or thunderclap in nature. The headache is not maximal in intensity. The headache is not associate with trauma, and not the worst headache of her life. She reports the worst headache a few years ago. She has no temporal pain, no claudication, no ocular pain, although she does report chronic blurry vision, and reports that she was supposed to follow-up with an outpatient actor understudy or automotive electrical helper, and has failed to do so secondary to Covid. She uses reading glasses [id number], but does not have prescription glasses. She denies neck pain, chest pain, abdominal pain, shortness of breath, urinary symptoms, focal extremity weakness and numbness. She sleeps in bed by herself, and usually gets 6 to 7 hours of sleep. She does occasionally consume caffeine at 5:00 PM, in the form of tea beverages. -: Gradual Location: head Radiation: non-radiation Severity scale (0 -10): 4 Consistency: now resolved Improves with: none Worsens with: none - Related Data Home Medications Medication Instructions Recorded Confirmed Last Taken hydroCHLOROthiazide [HCTZ] 25 mg PO QDAY 12/25/15 04/10/17 1 Day Ago ~04/09/17 Previous Rx's Medication Instructions Recorded Last Taken Type Potassium Chloride 20 meq PO DAILY 30 Days #30 liquid 08/08/19 Unknown Rx Allergies Allergy/AdvReac Type Severity Reaction Status Date / Time erythromycin base Allergy Shortness Verified 04/10/17 07:08 of Breath influenza virus vaccine qs Allergy Shortness Verified 04/10/17 07:08 2013- of Breath [From Fluarix Quad [id number] (PF)] morphine Allergy Shortness Verified 04/10/17 07:08 of Breath Penicillins Allergy Itching Verified 04/10/17 07:08 tramadol Allergy Itching Verified 04/10/17 07:08 ED Review of Systems ROS: Stated complaint: CHEST DISCOMFORT Other details as noted in HPI Constitutional: denies: diaphoresis, malaise, weakness Eyes: denies: eye pain, eye discharge ENT: denies: epistaxis Respiratory: denies: cough Cardiovascular: palpitations. denies: chest pain Gastrointestinal: denies: abdominal pain, nausea, vomiting Genitourinary: denies: dysuria Neurological: headache. denies: weakness, numbness, paresthesias Hematological/Lymphatic: denies: easy bleeding ED Past Medical Hx - Past Medical History Hx Hypertension: Yes Hx Diabetes: Yes (pre-diabetic) Additional medical history: A-fib - Surgical History Additional Surgical History: hysto - Social History Smoking Status: Never Smoker - Medications Home Medications: Home Medications Medication Instructions Recorded Confirmed Last Taken Type hydroCHLOROthiazide [HCTZ] 25 mg PO QDAY 12/25/15 04/10/17 1 Day Ago History ~04/09/17 Potassium Chloride 20 meq PO DAILY 30 Days #30 liquid 08/08/19 Unknown Rx ED Physical Exam - General Limitations: No Limitations General appearance: alert, in no apparent distress, obese - Head Head exam: Present: atraumatic, normocephalic - Eye Eye exam: Present: normal appearance, PERRL, EOMI, other (Visual acuity intact to finger counting, color perception, reading at a close distance). Absent: nystagmus - ENT ENT exam: Present: normal exam, normal orophraynx, mucous membranes moist, normal external ear exam - Neck Neck exam: Present: normal inspection, full ROM. Absent: tenderness, meningismus - Respiratory Respiratory exam: Present: normal lung sounds bilaterally. Absent: respiratory distress, wheezes, rales, rhonchi, stridor, decreased breath sounds - Cardiovascular Cardiovascular Exam: Present: regular rate, irregular rhythm, normal heart sounds. Absent: bradycardia, tachycardia, systolic murmur, diastolic murmur, rubs, gallop - GI/Abdominal GI/Abdominal exam: Present: soft. Absent: distended, tenderness, guarding, rebound, rigid, pulsatile mass - Extremities Exam Extremities exam: Present: normal inspection, full ROM, other (2+ pulses noted in the bilateral upper and lower extremities. There is no palpable cord. negative Homans sign. Muscular compartments are soft. The pelvis is stable.). Absent: pedal edema, calf tenderness - Back Exam Back exam: Present: normal inspection, full ROM. Absent: tenderness, CVA tende rness (R), CVA tenderness (L), paraspinal tenderness, vertebral tenderness - Neurological Exam Neurological exam: Present: alert, oriented X3, normal gait, other (No facial droop. Tongue midline. Extraocular movements intact bilaterally. Facial sensation intact to light touch in V1, V2, V3 distribution bilaterally. 5 and a 5 strength in 4 extremities. Sensation intact to light touch in 4 extremities.). Absent: motor sensory deficit - Psychiatric Psychiatric exam: Present: normal affect, normal mood - Skin Skin exam: Present: warm, dry, intact, normal color. Absent: rash ED Course Vital Signs 12/14/20 12/14/20 06:36 14:36 Temperature 98.2 F Pulse Rate 95 H 70 Respiratory 16 18 Rate Blood Pressure 153/96 Blood Pressure 140/87 [Right] O2 Sat by Pulse 98 99 Oximetry ED Medical Decision Making - Lab Data Result diagrams: 12/14/20 07:09 12/14/20 07:09 Vital Signs 12/14/20 12/14/20 06:36 14:36 Temperature 98.2 F Pulse Rate 95 H 70 Respiratory 16 18 Rate Blood Pressure 153/96 Blood Pressure 140/87 [Right] O2 Sat by Pulse 98 99 Oximetry Labs 12/14/20 12/14/20 12/14/20 07:09 07:09 12:54 WBC 9.6 RBC 3.96 Hgb 13.0 Hct 37.4 MCV 94 MCH 33 H MCHC 35 H RDW 13.3 Plt Count 154 Lymph % (Auto) 24.2 Hardeman % (Auto) 8.4 H Eos % (Auto) 1.3 Baso % (Auto) 0.7 Lymph # (Auto) 2.3 Hardeman # (Auto) 0.8 Eos # (Auto) 0.1 Baso # (Auto) 0.1 Seg Neutrophils % 65.4 Seg Neutrophils # 6.2 Sodium 139 Potassium 3.6 Chloride 104.3 Carbon Dioxide 25 Anion Gap 13 BUN 15 Creatinine 0.6 Estimated GFR > 60 BUN/Creatinine Ratio 25 Glucose 118 H Calcium 9.0 Magnesium Total Bilirubin < 0.20 AST 14 ALT 12 Alkaline Phosphatase 89 Troponin T < 0.010 < 0.010 Total Protein 6.9 Albumin 3.6 L Albumin/Globulin Ratio 1.1 TSH 12/14/20 12/14/20 12:54 12:54 WBC RBC Hgb Hct MCV MCH MCHC RDW Plt Count Lymph % (Auto) Hardeman % (Auto) Eos % (Auto) Baso % (Auto) Lymph # (Auto) Hardeman # (Auto) Eos # (Auto) Baso # (Auto) Seg Neutrophils % Seg Neutrophils # Sodium Potassium Chloride Carbon Dioxide Anion Gap BUN Creatinine Estimated GFR BUN/Creatinine Ratio Glucose Calcium Magnesium 2.20 Total Bilirubin AST ALT Alkaline Phosphatase Troponin T Total Protein Albumin Albumin/Globulin Ratio TSH 2.320 - EKG Data -: EKG Interpreted by Mi - EKG Data 12/14/20 16:47 EKG interpreted at 06: 42 Sinus rhythm, PAC, normal axis, QTC 448 ms, NC interval 212 ms. Abnormal EKG, poor R wave progression, not a STEMI, appears unchanged from prior EKG from August 08, 2019 - Radiology Data Radiology results: pending, report reviewed, image reviewed [address] [address] Cat Scan Report Signed Patient: BALWINDER FRANK MR#: [id number] : 1945 Acct:[id number] Age/Sex: 75 / F ADM Date: 12/14/20 Loc: ED Attending Dr: Ordering Physician: RAKESH NOVOA MD Date of Service: 12/14/20 Procedure(s): CT head/brain wo con Accession Number(s): [id number] cc: RAKESH NOVOA MD CT head/brain wo con INDICATION: headache, on xarelto. TECHNIQUE: All CT scans at this location are performed using CT dose reduction for ALARA by means of automated exposure control. COMPARISON: Previous head CT on 08/08/2019 FINDINGS: There is no evidence of hemorrhage, hydrocephalus, brain edema, or mass effect/mass lesion. There is unchanged mild brain atrophy and mild chronic small vessel ischemic change in the cerebral white matter. The included paranasal sinuses and mastoid air cells are clear. The orbits appear unremarkable. IMPRESSION: 1. No acute findings or adverse change from prior exams. Signer Name: Michael Joseph MD Signed: 12/14/2020 4:00 PM Workstation Name: [id number] Transcribed By: NEHEMIAS Dictated By: Michael Joseph MD Electronically Authenticated By: Michael Joseph MD Signed Date/Time: 12/14/20 1600 DD/ 1559 [facility] [address] [place] [address] XRay Report Signed Patient: BALWINDER FRANK MR#: [id number] : 1945 Acct:[id number] Age/Sex: 75 / F ADM Date: 12/14/20 Loc: ED Attending Dr: Ordering Physician: MIKAYLA SANDERS MD Date of Service: 12/14/20 Procedure(s): XR chest routine 2V Accession Number(s): [id number] cc: ED MD MARILYN Fluoro Time In Minutes: CHEST 2 VIEWS INDICATION: palpitations. Nausea and headache for 6 hours. C OMPARISON: 08/08/2019 FINDINGS: Support devices: None. Heart: Within normal limits. The aorta is mildly ectatic but well defined. Lungs/pleura: No acute air space or interstitial disease. No pneumothorax. Additional findings: None. IMPRESSION: No acute findings. Signer Name: aDmian Mora Jr, MD Signed: 12/14/2020 7:47 AM Workstation Name: [id number] Transcribed By: TTR Dictated By: DAMIAN MORA JR, MD Electronically Authenticated By: DAMIAN MORA JR, MD Signed Date/Time: 12/14/20 0747 DD/ 0746 - Medical Decision Making Differential diagnosis, including but not limited to: Palpitations, electrolyte derangement, anticoagulated, A. fib, migraine headache, tension headache, cluster headache, anxiety, sleep apnea, caffeine side effect assessment and plan: 75-year-old female, with a GCS of 15, NIH score of 0, who is clinically sober, with no pulmonary embolism or DVT risk factors, low risk by Wells criteria for pulmonary embolism, systemically anticoagulated, angiographically normal coronary arteries via catheterization at this hospital in 2017, troponin negative x2, with resolved headache, and resolved palpitations, presenting with a primary complaint of palpitations, painless, now resolved, and headache which is now resolved. No recent trauma, chiropractic manipulation, MVC, headache is not described as sudden, thunderclap, or worst headache of life, no temporal pain, no jaw claudication, no pain with chewing and/or swallowing, and no acute changes in visual acuity. Because of advanced age, presence of systemic anticoagulation, noncontrast CT scan of the brain was obtained, which was negative for acute findings. Patient's EKG is unchanged from prior, laboratory studies unremarkable. Advanced age and cardiovascular risk factor profile are reviewed and appreciated, but based off of the history, physical, objective diagnostic testing, do not see indication to admit this patient for accelerated cardiac or stratification at this time, especially as her complaint is painless palpitations, and resolved headache. After a thorough ER work-up and evaluation, she was not found to have an emergent medical condition present at this time, and she may follow-up with her outpatient primary care doctor and/or crusher plant operator. The patient was counseled to follow-up with her outpatient actor understudy or automotive electrical helper for evaluation for prescription glasses. She has articulated understanding. Critical care attestation.: If time is entered above; I have spent that time in minutes in the direct care of this critically ill patient, excluding procedure time. ED Disposition Clinical Impression: History of headache, Atrial fibrillation, Palpitations Disposition: DC-01 TO HOME OR SELFCARE Is pt being admited?: No Does the pt Need Aspirin: No Condition: Good Additional Instructions: Please continue current outpatient medications. Please follow-up with your outpatient primary care doctor or crusher plant operator within the next 3 to 5 days. Please follow-up with an outpatient actor understudy or automotive electrical helper within the next week for dedicated formal visual testing, and to be assessed for corrective lenses. Please return to the emergency room right away with new pain, worsened pain, migration of pain, projectile vomiting, change in mental status, confusion, inability to tolerate liquid feeds, new, worsened or different symptoms not present on the initial ER evaluation. Patient may take jlwe-srk-nrabefx aceta minophen/Tylenol as needed for physical pain, 60 mg by mouth, every 4-6 hours, maximum daily dose to not exceed 3 g per 24 hours. Referrals: NANCY ROCA [Other] - 3-5 Days [facility] [Provider Group] - 3-5 Days
--- NOTE | 2020-12-14 15:03 | Electrocardiograph Report ---
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
--- NOTE | 2020-12-14 16:04 | Cat Scan Report ---
CT head/brain wo con INDICATION: headache, on xarelto. TECHNIQUE: All CT scans at this location are performed using CT dose reduction for ALARA by means of automated e xposure control. COMPARISON: Previous head CT on 08/08/2019 FINDINGS: There is no evidence of hemorrhage, hydrocephalus, brain edema, or mass effect/mass lesion. There is unchanged mild brain atrophy and mild chronic small vessel ischemic change in the cerebral white jacques er. The included paranasal sinuses and mastoid air cells are clear. The orbits appear unremarkable. IMPRESSION: 1. No acute findings or adverse change from prior exams. Signer Name: Michael Joseph MD Signed: 12/14/2020 4:00 PM Workstation Name: [id number]
[2020-12-14 18:25] VITALS: BP 137/69
== END 2020-12-14 18:25 | disposition home or self-care (01) ==
LOC: ED 06:31
DX: I48.91 Unspecified atrial fibrillation (principal); R00.2 Palpitations; R51.9 Headache, unspecified; I10 Essential (primary) hypertension; E11.9 Type 2 diabetes mellitus without complications; Z98.890 Other specified postprocedural states; Z79.899 Other long term (current) drug therapy; Z88.8 Allergy status to other drugs, medicaments and biological substances
CPT/HCPCS: 36415; 70450; 71046; 80053; 83735; 84443; 84484; 85025; 93005